=== PATIENT | female | born 1990 | race Caucasian/White ===

== ENCOUNTER 2016-10-26 08:58 | Emergency (ER) | payer OTHER ==
[~2016-10-26] VITALS: Ht 167.6 cm; Wt 77.3 kg
[2016-10-26] MEDS ORDERED: PROZ10CA7 PO (09:06)
[2016-10-26 10:41] VITALS: BP 126/78
--- NOTE | 2016-10-26 11:49 | REP ---
RIGHT FOOT, TWO VIEWS: Two views of the right foot are performed. No fracture or dislocation is seen. There is an accessory ossicle at the lateral base of the first metatarsal. Joint spaces are otherwise unremarkable. IMPRESSION: Accessory ossicle base of first metatarsal dorsolaterally. Otherwise unremarkable. Signed by Raymond Bridges MD 10/26/2016 03:19 P
== END 2016-10-26 10:43 | disposition home or self-care (01) ==
LOC: M ED 08:58
DX: S90.31XA Contusion of right foot, initial encounter (principal); W51.XXXA Accidental striking against or bumped into by another person, initial encounter; Y92.009 Unspecified place in unspecified non-institutional (private) residence as the place of occurrence of the external cause; Y93.83 Activity, rough housing and horseplay; Y99.8 Other external cause status; Z79.899 Other long term (current) drug therapy

== ENCOUNTER 2017-08-18 14:14 | Outpatient (CLI) | payer OTHER ==
[2017-08-18 15:19] LABS: HEMATOCRIT 36.6 % (36.0-47.0); HEMOGLOBIN 12.5 g/dl (12.0-15.5); MEAN CORPUSCULAR HEMOGLOBIN 32.2 pg (27.0-33.0); MEAN CORPUSCULAR HGB CONC 34.2 g/dl (32.0-36.5); MEAN CORPUSCULAR VOLUME 94.3 fl (80.0-96.0); PLATELET COUNT, AUTOMATED 206 10^3/uL (150-450); RED BLOOD COUNT 3.88 10^6/uL (4.00-5.40); RED CELL DISTRIBUTION WIDTH 12.2 % (11.5-14.5); WHITE BLOOD COUNT 8.8 10^3/uL (4.0-10.0)
[2017-08-18 15:43] LABS: ALBUMIN 2.5 GM/DL (3.2-5.2); ALBUMIN/GLOBULIN RATIO 0.69 (1.00-1.93); ALKALINE PHOSPHATASE 99 U/L (45-117); ALT/SGPT 25 U/L (12-78); AMYLASE 37 U/L (25-115); ANION GAP 7 MEQ/L (8-16); AST/SGOT 22 U/L (7-37); BILIRUBIN,TOTAL 0.4 MG/DL (0.2-1.0); BLOOD UREA NITROGEN 8 MG/DL (7-18); CALCIUM LEVEL 7.9 MG/DL (8.5-10.1); CARBON DIOXIDE LEVEL 22 MEQ/L (21-32); CHLORIDE LEVEL 110 MEQ/L (98-107); CREATININE FOR GFR 0.48 MG/DL (0.55-1.30); GLOMERULAR FILTRATION RATE > 60.0 (>60); GLUCOSE, FASTING 85 MG/DL (70-100); LIPASE 69 U/L (73-393); SODIUM LEVEL 139 MEQ/L (136-145); TOTAL PROTEIN 6.1 GM/DL (6.4-8.2)
== END 2017-08-18 18:03 | disposition home or self-care (01) ==
LOC: M LDO 14:14
DX: O26.899 Other specified pregnancy related conditions, unspecified trimester (principal); R10.9 Unspecified abdominal pain; Z3A.00 Weeks of gestation of pregnancy not specified
CPT/HCPCS: 59025

== ENCOUNTER 2017-10-13 06:54 | Inpatient (IN) | payer OTHER ==
[2017-10-13 08:11] LABS: HEMOGLOBIN 12.9 g/dl (12.0-15.5); MEAN CORPUSCULAR HEMOGLOBIN 32.7 pg (27.0-33.0); MEAN CORPUSCULAR HGB CONC 34.9 g/dl (32.0-36.5); MEAN CORPUSCULAR VOLUME 93.7 fl (80.0-96.0); PLATELET COUNT, AUTOMATED 223 10^3/uL (150-450); RED BLOOD COUNT 3.95 10^6/uL (4.00-5.40); RED CELL DISTRIBUTION WIDTH 12.8 % (11.5-14.5); WHITE BLOOD COUNT 10.5 10^3/uL (4.0-10.0)
[2017-10-13 09:09] LABS: AMPHETAMINES URINE REFLEX NEGATIVE (NEGATIVE); BARBITURATES URINE REFLEX NEGATIVE (NEGATIVE); BENZODIAZEPINES URINE REFLEX NEGATIVE (NEGATIVE); CANNABINOIDS URINE REFLEX NEGATIVE (NEGATIVE); COCAINE METABOLITE URINE REFLE NEGATIVE (NEGATIVE); METHADONE URINE REFLEX NEGATIVE (NEGATIVE); OPIATES URINE REFLEX NEGATIVE (NEGATIVE); PHENCYCLIDINE URINE REFLEX NEGATIVE (NEGATIVE)
[2017-10-13] MEDS: OXYTOCIN DRIP 30 UNITS in APPROPRIATE DILUENT 1 EA IV (11:10)
[2017-10-13] MEDS: LR 1,000 ML IV ×3 (11:10→23:55)
[2017-10-13] MEDS: LACTATED RINGER'S 1000 ML IV (14:15)
[2017-10-13] MEDS ORDERED: FENTANYL 2MCG/ML ROPIVACAINE 0.2% IN 0.9% NACL 200ML IVBAG As Ordered (14:45)
[2017-10-13] MEDS ORDERED: ePHEDrine SULFATE 25 MG/5 ML(5MG/ML) SYRINGE IV (16:30)
[2017-10-13] MEDS ORDERED: REFRIGERATOR IV KEYS XX (16:30)
[2017-10-13] MEDS: FENTANYL/ROPIVACAINE/NACL BAG 200 ML EPIDURAL (16:30)
[2017-10-13] MEDS ORDERED: NALOXONE INJ 0.4 MG/1 ML VIAL (J2310) IV (16:30)
[2017-10-13] MEDS ORDERED: EPIDURAL COMMENT XX (16:30)
[2017-10-13] MEDS ORDERED: diphenhydrAMINE INJ 50MG/ML VIAL (J1200) IV (16:30)
[2017-10-13] MEDS ORDERED: LACTATED RINGER'S 1000 ML IV (16:30)
[2017-10-13] MEDS ORDERED: ONDANSETRON 4MG/2ML VIAL (J2405) IV (16:30)
[2017-10-13] MEDS ORDERED: EPIDURAL/PCA KEYS XX (16:30)
[2017-10-14] MEDS ORDERED: OXYTOCIN DRIP 30 UNITS in APPROPRIATE DILUENT 1 EA IV (02:58)
[2017-10-14 03:00] LABS: CORD GAS ABE V -1.8; CORD GAS O2 SAT V 42.9 %; CORD GAS PCO2 V 44.6 mmHg; CORD GAS PH V 7.349 UNITS; CORD GAS SBC V 21.6 MEQ/L; CORD GAS TCO2 V 25.4 MEQ/L
[2017-10-14] MEDS ORDERED: METHYLERGONOVINE MALEATE 0.2 MG TAB PO (03:00)
[2017-10-14] MEDS ORDERED: RHOGAM 300 MCG (1500 IU) INJ (J2790) IM (03:00)
[2017-10-14] MEDS ORDERED: DOCUSATE SODIUM 100 MG CAP PO (03:00)
[2017-10-14] MEDS ORDERED: DIBUCAINE 1% OINTMENT 30GM TOP (03:00)
[2017-10-14] MEDS ORDERED: MEASLES,MUMPS,RUBELLA VACCINE INJ (MMR-II) (90707) SC (03:00)
[2017-10-14] MEDS ORDERED: MOM 30ML SUSPENSION UDC PO (03:00)
[2017-10-14] MEDS ORDERED: ANUSOL HC CREAM 30GM TOP (03:00)
[2017-10-14 03:01] LABS: CORD GAS ABE A 0.7; CORD GAS HCO3 A 28.5 MEQ/L; CORD GAS O2 SAT A 16.4 %; CORD GAS PH A 7.302 UNITS; CORD GAS PO2 A 10.2 mmHg; CORD GAS SBC A 23.1 MEQ/L; CORD GAS TCO2 A 30.3 MEQ/L
[2017-10-14] MEDS: OXYTOCIN INJ 10 UNITS/ML VIAL (J2590) IV (03:30)
[2017-10-14] MEDS: IBUPROFEN 800 MG TAB PO ×2 (03:41→11:27)
[2017-10-14] MEDS: ACETAMINOPHEN 500 MG TAB PO ×2 (03:41→13:24)
[2017-10-14] MEDS: PRENATAL VITAMINS CHEWABLE TABLET PO (08:16)
[2017-10-15 07:33] LABS: HEMATOCRIT 35.7 % (36.0-47.0); HEMOGLOBIN 12.3 g/dl (12.0-15.5); MEAN CORPUSCULAR HEMOGLOBIN 32.6 pg (27.0-33.0); MEAN CORPUSCULAR HGB CONC 34.5 g/dl (32.0-36.5); MEAN CORPUSCULAR VOLUME 94.7 fl (80.0-96.0); PLATELET COUNT, AUTOMATED 217 10^3/uL (150-450); RED BLOOD COUNT 3.77 10^6/uL (4.00-5.40); RED CELL DISTRIBUTION WIDTH 13.3 % (11.5-14.5); WHITE BLOOD COUNT 11.6 10^3/uL (4.0-10.0)
[2017-10-15] MEDS: ACETAMINOPHEN 500 MG TAB PO (07:34)
[2017-10-15] MEDS: PRENATAL VITAMINS CHEWABLE TABLET PO (09:00)
== END 2017-10-15 12:00 | disposition home or self-care (01) | DRG 775 ==
LOC: M LDO 06:54 → M OBS 10-14 04:28 → M LDI 07:55
PROVIDERS: Obstetrics & Gynecology
PROC: 10E0XZZ Delivery of Products of Conception, External Approach (ICD-10-PCS; principal; 2017-10-14)
DX: O34.211 Maternal care for low transverse scar from previous cesarean delivery (principal); O99.344 Other mental disorders complicating childbirth; Z3A.40 40 weeks gestation of pregnancy; F41.9 Anxiety disorder, unspecified; O69.89X0 Labor and delivery complicated by other cord complications, not applicable or unspecified; Z37.0 Single live birth

== ENCOUNTER → 2018-02-05 | Outpatient (CLI) | payer OTHER | LOC: M RAD 08:54 | DX: R10.11 Right upper quadrant pain (principal) | CPT/HCPCS: J2805 ==

== ENCOUNTER 2018-06-28 10:55 | Emergency (ER) | payer OTHER ==
[~2018-06-28] VITALS: Ht 165.1 cm; Wt 76.5 kg
[~2018-06-28 10:55] MED LIST: COLA100C5 PO; DIBU10OI TOP; IBUP-1114 PO; MAPA500T2 PO; PRENTAB9 PO; PROZ10CA7 PO; TUMS500C PO
[2018-06-28 10:56] VITALS: BP 124/82
[2018-06-28] MEDS ORDERED: ESCI20TA (11:13)
[2018-06-28] MEDS ORDERED: NORE0.353 (11:13)
[2018-06-28] MEDS ORDERED: NS 1,000 ML IV ONE (11:45)
[2018-06-28 12:11] LABS: BASO % 0.7 % (0.0-1.0); EOS # 0.1 10^3/uL (0.0-0.50); EOS % 1.9 % (0.0-3.0); HEMATOCRIT 40.9 % (36.0-47.0); HEMOGLOBIN 13.3 g/dl (12.0-15.5); LYMPH # 1.9 10^3/uL (1.5-6.5); LYMPH % 33.9 % (24.0-44.0); MEAN CORPUSCULAR HEMOGLOBIN 31.3 pg (27.0-33.0); MEAN CORPUSCULAR HGB CONC 32.5 g/dl (32.0-36.5); MEAN CORPUSCULAR VOLUME 96.2 fl (80.0-96.0); MONO # 0.5 10^3/uL (0.0-0.8); NEUTROPHILS # 3.2 10^3/uL (1.8-7.7); PLATELET COUNT, AUTOMATED 248 10^3/uL (150-450); RED BLOOD COUNT 4.25 10^6/uL (4.00-5.40); WHITE BLOOD COUNT 5.7 10^3/uL (4.0-10.0)
[2018-06-28 12:38] LABS: HCG, SERUM QUALITATIVE NEGATIVE (NEGATIVE)
[2018-06-28 12:39] LABS: ALBUMIN 3.7 GM/DL (3.2-5.2); ALT/SGPT 19 U/L (12-78); BILIRUBIN,DIRECT < 0.1 MG/DL (0.0-0.2); BILIRUBIN,TOTAL 0.2 MG/DL (0.2-1.0); BLOOD UREA NITROGEN 16 MG/DL (7-18); CALCIUM LEVEL 8.7 MG/DL (8.5-10.1); CARBON DIOXIDE LEVEL 30 MEQ/L (21-32); CHLORIDE LEVEL 108 MEQ/L (98-107); GLOMERULAR FILTRATION RATE > 60.0 (>60); GLUCOSE, FASTING 80 MG/DL (70-100); LIPASE 125 U/L (73-393); POTASSIUM SERUM 4.2 MEQ/L (3.5-5.1); SODIUM LEVEL 142 MEQ/L (136-145); TOTAL PROTEIN 6.8 GM/DL (6.4-8.2)
[2018-06-28] MEDS ORDERED: ONDA4TAB6 PO (13:05)
== END 2018-06-28 13:54 | disposition home or self-care (01) ==
LOC: M ED 10:55
DX: E86.0 Dehydration (principal); R10.32 Left lower quadrant pain; R11.0 Nausea; R19.5 Other fecal abnormalities; F41.9 Anxiety disorder, unspecified; F32.9 Major depressive disorder, single episode, unspecified; Z79.899 Other long term (current) drug therapy

== ENCOUNTER → 2018-07-16 | Outpatient (REF) | payer OTHER ==
[~2018-07-16] MED LIST changes: +ESCI20TA; +NORE0.353; +ONDA4TAB6 PO
== END ==
LOC: M SFHCLERA 15:35
PROVIDERS: ATTEND Nurse Practitioner Family
DX: R53.81 Other malaise (principal)